=== PATIENT | female | born 1935 | race Caucasian/White ===

== ENCOUNTER 2016-07-13 17:16 | Emergency (ER) | payer MEDICARE ==
[2016-07-13 19:38] LABS: HEMOGLOBIN 11.7 gm/dl (12.3-15.3); RED BLOOD COUNT 3.89 M/UL (4.00-5.10); WHITE BLOOD COUNT 4.4 K/UL (4.5-11.0)
[2016-07-13 19:58] LABS: BUN/CREATININE RATIO 18 (0-10)
[2016-12-23] MEDS ORDERED: JANUVIA100 MG PO (14:52)
[2016-12-23] MEDS ORDERED: SINGULAIR10 MG PO (14:53)
[2016-12-23] MEDS ORDERED: ALTACE5 MG PO (14:53)
[2016-12-23] MEDS ORDERED: COQ-10100 MG PO (14:55)
[2016-12-23] MEDS ORDERED: LIPITOR TAB 2020 MG PO (14:55)
[2016-12-23] MEDS ORDERED: PLAVIX 75 MG TA75 MG PO (14:55)
[2016-12-23] MEDS ORDERED: ASPIR 8181 MG PO (14:56)
[2016-12-23] MEDS ORDERED: CARDIZEM30 MG PO (14:56)
[2016-12-23] MEDS ORDERED: STOOL SOFTENER100 M1 PO (14:57)
[2016-12-23] MEDS ORDERED: METFORMIN HCL500 MG PO (14:57)
[2016-12-27] MEDS ORDERED: IBUPROFEN600 MG PO (11:33)
== END 2016-07-13 23:33 | disposition home or self-care (01) ==
LOC: ER1 17:16
PROVIDERS: Emergency Medicine
DX: L25.9 Unspecified contact dermatitis, unspecified cause (principal); R53.1 Weakness; R42 Dizziness and giddiness; I25.2 Old myocardial infarction; E11.9 Type 2 diabetes mellitus without complications; J45.909 Unspecified asthma, uncomplicated; Z79.02 Long term (current) use of antithrombotics/antiplatelets; Z79.82 Long term (current) use of aspirin; Z79.899 Other long term (current) drug therapy
CPT/HCPCS: 36415; 70450; 71010; 80053; 81001; 82550; 82553; 83605; 83874; 83880; 84484; 85025; 87040; 93005; 99285

== ENCOUNTER → 2020-07-04 | Outpatient (CLI) | payer MEDICARE, BC ==
[~2020-07-04] MED LIST: ALTACE10 MG PO; ALTACE5 MG PO; ASMANEX220 MC1 INH; ASMANEX220 MC2 INH; ASPIR 8181 MG PO; AUGMENTIN 500-500 MG PO; CARDIZEM30 MG PO; CLARITIN10 MG PO; COLESEVELAM HC625 MG PO; COQ-10100 MG PO; ELIQUIS5 MG PO; FAMOTIDINE20 MG PO; GLUCOPHAGE500 MG PO; IBUPROFEN600 MG PO; JANUVIA 100 MG100 MG PO; JANUVIA100 MG PO; KLONOPIN TAB 00.5 MG PO; KLOR-CON M2020 MEQ PO; LASIX40 MG PO; LEVOFLOXACIN250 MG PO; LINZESS145 MCG PO; LIPITOR TAB 2020 MG PO; METFORMIN HCL500 MG PO; NORCO 5-325 TA1 EACH PO; OMNICEF 300 MG300 MG PO; OXYBUTYNIN CHLO10 MG PO; POTASSIUM CHLO20 ME2 PO; SINGULAIR10 MG PO; SOTALOL80 MG PO; STOOL SOFTENER100 M1 PO; TYLENOL PM EX-1 EACH PO; TYLENOL W/CODEIN1 EA PO; XOPENEX0.63 MG/3 INH; ZANTAC150 MG PO; [UNRECOGNIZED DRUG - OTHER] PO
== END ==
LOC: HEART 5 16:04
DX: R10.84 Generalized abdominal pain (principal); R92.8 Other abnormal and inconclusive findings on diagnostic imaging of breast; R94.39 Abnormal result of other cardiovascular function study; L57.0 Actinic keratosis; J45.991 Cough variant asthma
CPT/HCPCS: 94010

== ENCOUNTER → 2020-09-29 | Outpatient (CLI) | payer MEDICARE, BC | LOC: CATH 07:58 | DX: Z45.09 Encounter for adjustment and management of other cardiac device (principal); I48.0 Paroxysmal atrial fibrillation; G45.9 Transient cerebral ischemic attack, unspecified; I25.119 Atherosclerotic heart disease of native coronary artery with unspecified angina pectoris; I11.0 Hypertensive heart disease with heart failure; I50.23 Acute on chronic systolic (congestive) heart failure; F41.9 Anxiety disorder, unspecified; E11.9 Type 2 diabetes mellitus without complications; K21.9 Gastro-esophageal reflux disease without esophagitis; E78.2 Mixed hyperlipidemia; Z88.6 Allergy status to analgesic agent; Z91.041 Radiographic dye allergy status; Z79.01 Long term (current) use of anticoagulants; Z79.84 Long term (current) use of oral hypoglycemic drugs; I25.2 Old myocardial infarction; Z79.899 Other long term (current) drug therapy | CPT/HCPCS: 71045; 82962; 99152; J2250; J3010; J3370; J7040; J7050 ==

== ENCOUNTER 2020-10-11 16:52 | Observation (INO) | payer MEDICARE, BC ==
[~2020-10-11] VITALS: Ht 175.3 cm; Wt 56.4 kg
[~2020-10-11 16:52] MED LIST changes: -OMNICEF 300 MG300 MG PO
[2020-10-11 18:49] LABS: HEMOGLOBIN 11.5 gm/dl (12.3-15.3); RED BLOOD COUNT 3.7 M/UL (4.00-5.10); WHITE BLOOD COUNT 4.7 K/UL (4.5-11.0)
[2020-10-11 19:17] LABS: BUN/CREATININE RATIO 17 (0-10)
[2020-10-12 03:22] LABS: HEMOGLOBIN 10.7 gm/dl (12.3-15.3); RED BLOOD COUNT 3.49 M/UL (4.00-5.10); WHITE BLOOD COUNT 4.8 K/UL (4.5-11.0)
[2020-10-12 03:48] LABS: BUN/CREATININE RATIO 20 (0-10)
[2020-10-12] MEDS ORDERED: OMNICEF 300 MG300 MG PO (10:06)
== END 2020-10-12 16:18 | disposition home or self-care (01) ==
LOC: ER1 16:52 → CDU 20:23 → M/S 23:43
PROVIDERS: Emergency Medicine; ADMIT Family Medicine
DX: R07.89 Other chest pain (principal); I25.10 Atherosclerotic heart disease of native coronary artery without angina pectoris; I10 Essential (primary) hypertension; I48.91 Unspecified atrial fibrillation; K21.9 Gastro-esophageal reflux disease without esophagitis; E11.9 Type 2 diabetes mellitus without complications; R91.8 Other nonspecific abnormal finding of lung field; Z20.822 Contact with and (suspected) exposure to COVID-19; Z88.6 Allergy status to analgesic agent; Z95.5 Presence of coronary angioplasty implant and graft; Z91.041 Radiographic dye allergy status; Z91.018 Allergy to other foods; Z79.84 Long term (current) use of oral hypoglycemic drugs; Z79.01 Long term (current) use of anticoagulants; Z79.899 Other long term (current) drug therapy
CPT/HCPCS: 36415; 71045; 80053; 82550; 82553; 82962; 83874; 83880; 84484; 85025; 85379; 93005; 96374; 99285; G0378; J0696; U0002

== ENCOUNTER → 2020-11-21 | Outpatient (CLI) | payer MEDICARE, BC ==
[~2020-11-21] MED LIST changes: +OMNICEF 300 MG300 MG PO
== END ==
LOC: KOH-I 11:27
DX: J18.9 Pneumonia, unspecified organism (principal)
CPT/HCPCS: 71046

== ENCOUNTER → 2021-03-16 | Outpatient (CLI) | payer MEDICARE, BC | LOC: KOH-I 11:14 | DX: K59.09 Other constipation (principal); R14.3 Flatulence | CPT/HCPCS: 74018 ==

== ENCOUNTER → 2021-04-16 | Outpatient (CLI) | payer MEDICARE, BC | LOC: KOH-I 08:00 | DX: R51.9 Headache, unspecified (principal) | CPT/HCPCS: 70551 ==

== ENCOUNTER 2021-05-15 18:31 | Observation (INO) | payer MEDICARE, MEDICAID ==
[~2021-05-15] VITALS: Ht 162.6 cm; Wt 52.6 kg
[2021-05-15 18:51] LABS: HEMOGLOBIN 13.5 gm/dl (12.3-15.3); RED BLOOD COUNT 4.23 M/UL (4.00-5.10); WHITE BLOOD COUNT 6.4 K/UL (4.5-11.0)
[2021-05-15 19:14] LABS: BUN/CREATININE RATIO 20 (0-10)
[2021-05-16] MEDS ORDERED: METFORMIN HCL1000 MG PO (11:13)
== END 2021-05-16 14:40 | disposition home or self-care (01) ==
LOC: ER1 18:31 → CDU 19:46
PROVIDERS: Emergency Medicine; ADMIT Surgery
DX: S01.81XA Laceration without foreign body of other part of head, initial encounter (principal); H57.89 Other specified disorders of eye and adnexa; R41.0 Disorientation, unspecified; R47.01 Aphasia; I25.10 Atherosclerotic heart disease of native coronary artery without angina pectoris; E11.9 Type 2 diabetes mellitus without complications; I10 Essential (primary) hypertension; Z86.73 Personal history of transient ischemic attack (TIA), and cerebral infarction without residual deficits; Z88.8 Allergy status to other drugs, medicaments and biological substances; Z91.041 Radiographic dye allergy status; Z20.822 Contact with and (suspected) exposure to COVID-19; V48.4XXA Person boarding or alighting a car injured in noncollision transport accident, initial encounter; Y92.009 Unspecified place in unspecified non-institutional (private) residence as the place of occurrence of the external cause
CPT/HCPCS: 70450; 71045; 72125; 80053; 80307; 81001; 82550; 82553; 83605; 83874; 84484; 85025; 85610; 85730; 86850; 86900; 86901; 87086; 90715; G0480; J7030; U0002

== ENCOUNTER → 2021-10-16 | Outpatient (CLI) | payer MEDICARE, BC, MEDICAID ==
[~2021-10-16] MED LIST changes: +METFORMIN HCL1000 MG PO
== END ==
LOC: EXRD 10-09 11:30
DX: I65.23 Occlusion and stenosis of bilateral carotid arteries (principal)
CPT/HCPCS: 93880